=== PATIENT | female | born 1940 | race Caucasian/White ===

== ENCOUNTER 2017-12-09 00:29 | Emergency (ER) | payer MEDICARE, OTHER ==
[~2017-12-09] VITALS: Ht 152.4 cm; Wt 65.8 kg
[2017-12-09] MEDS ORDERED: LANTUS100 UNITS/ SUB-Q (00:58)
[2017-12-09] MEDS ORDERED: METOPROLOL SUCC25 MG PO (00:59)
[2017-12-09] MEDS ORDERED: ACTOS30 MG PO (00:59)
--- OUTSIDE RECORDS SUMMARY | 2017-12-09 01:21 | XMS | Clinical Summary ---
Demographics + + + | Address | [address] | | | [place] [address] | + + + | Home Phone | | + + + | Preferred Language | Unknown | + + + | Marital Status | Single | + + + | Voodoo Affiliation | NON | + + + | Race | White | + + + | Ethnic Group | Not or | + + + Author + + + | Author | [facility] | + + + | Organization | [facility] | + + + | Address | Unknown | + + + | Phone | Unavailable | + + + Care Team Providers + +------+ + | Care Piano Mechanic Apprentice Name | Role | Phone | + +------+ + PP | Unavailable | + +------+ + Source Comments [facility] [place] [facility] and [facility] InPatient.[facility] Allergies Not on File Current Medications Not on file Active Problems Not on file Social History + +-------+ +--------+------+ | Tobacco Use | Types | Packs/Day | Years | Date | | | | | Used | | + +-------+ +--------+------+ | Never Assessed | | | | | + +-------+ +--------+------+ + + + | Sex Assigned at | Date Recorded | | | | + + + | Not on file | | + + + Plan of Treatment + + + + + | Health Maintenance | Due Date | Last Done | Comments | + + + + + | INFLUENZA VACCINE | | | | | (FLU SHOT) | 7 | | | + + + + + Results Not on filefrom Last 3 Months"
--- OUTSIDE RECORDS SUMMARY | 2017-12-09 01:22 | XMS | Clinical Summary ---
Demographics + + + | Address | [address] | | | [place] [address] | + + + | Home Phone | | + + + | Preferred Language | Unknown | + + + | Marital Status | Single | + + + | Restoration Affiliation | NON | + + + | Race | White | + + + | Ethnic Group | Not or | + + + Author + + + | Author | [facility] | + + + | Organization | [facility] | + + + | Address | Unknown | + + + | Phone | Unavailable | + + + Care Team Providers + +------+ + | Care Booster Assembler Name | Role | Phone | + +------+ + PP | Unavailable | + +------+ + Source Comments [facility] and [facility] InPatient.[facility] Allergies Not on File Current Medications Not [...]
== END 2017-12-09 02:10 | disposition home or self-care (01) ==
LOC: ED 00:29
DX: E09.649 Drug or chemical induced diabetes mellitus with hypoglycemia without coma (principal); T38.3X5A Adverse effect of insulin and oral hypoglycemic [antidiabetic] drugs, initial encounter; I10 Essential (primary) hypertension; K21.9 Gastro-esophageal reflux disease without esophagitis; E03.9 Hypothyroidism, unspecified; Z90.49 Acquired absence of other specified parts of digestive tract; Z88.8 Allergy status to other drugs, medicaments and biological substances; Z79.899 Other long term (current) drug therapy; Z79.4 Long term (current) use of insulin
CPT/HCPCS: 99283

== ENCOUNTER 2019-04-03 10:03 | Emergency (ER) | payer MEDICARE, OTHER ==
[~2019-04-03] VITALS: Ht 149.9 cm; Wt 57.6 kg
--- OUTSIDE RECORDS SUMMARY | ~2019-04-03 | XMS | Clinical Summary ---
Demographics + + + | Address | [address] | | | [place] [address] | + + + | Home Phone | | + + + | Preferred Language | Unknown | + + + | Marital Status | | + + + | Yarsanism Affiliation | Unknown | + + + | Race | Unknown | + + + | Ethnic Group | Unknown | + + + Author + + + | Author | [facility] | | | and [place] | + + + | Organization | [facility] | | | and [place] | + + + | Address | Unknown | + + + | Phone | Unavailable | + + + Support + + +---------+ + | Name | Relationship | Address | Phone | + + +---------+ + | SAUL WADSWORTH | ECON | Unknown | | + + +---------+ + Care Team Providers + +------+ + | Care Chucking Lathe Operator Name | Role | Phone | + +------+ + PP | Unavailable | + +------+ + Allergies Not on File Medications Not on file Active Problems Not [...] on file | | + + + + + + + | Job Start Date | Occupation | Industry | + + + + | Not on file | Not on file | Not on file | + + + + + + + + | Travel History | Travel Start | Travel End | + + + + + + | No recent travel history available. | + + Plan of Treatment + + + + + | Health Maintenance | Due Date | Last Done | Comments | + + + + + | Vaccine: | | | | | Dtap/Tdap/Td (1 - | 7 | | | | Tdap) | | | | + + + + + | Vaccine: Zoster (1 | | | | | of 2) | 8 | | | + + + + + | Vaccine: | | | | | Pneumococcal 65+ | 3 | | | | Low/Medium Risk (1 | | | | | of 2 - PCV13) | | | | + + + + + | Vaccine: Influenza | | | | | (Season Ended) | 9 | | | + + + + + Results Not on filefrom Last 3 Months"
--- OUTSIDE RECORDS SUMMARY | ~2019-04-03 | XMS | Encounter Summary ---
Demographics + + + | Address | [address] | | | [place] [address] | + + + | Home Phone | | + + + | Preferred Language | Unknown | + + + | Marital Status | Single | + + + | Temple Affiliation | NON | + + + | Race | White | + + + | Ethnic Group | Not or | + + + Author + + + | Author | [facility] | + + + | Organization | [facility] | + + + | Address | Unknown | + + + | Phone | Unavailable | + + + Care Team Providers + +------+ + | Care Ceramic Painter Name | Role | Phone | + +------+ + PCP | Unavailable | + +------+ + Encounter Details +--------+ + + + + | Date | Type | Department | Care Team | Description | +--------+ + + + + | 09/24/ | Hospital | Dermatopathology | | | | 2015 | Encounter | [address] | | | | | | Mail Code: CH16D | | | | | | [facility] | | | | | | and Healing, 5th | | | | | | floor [place], [place] | | | | | | [address] | | | | | | [phone] | | | +--------+ + + + + Social History + +-------+ +--------+------+ | Tobacco [...] recent travel history available. | + + documented as of this encounter Plan of Treatment Not on filedocumented as of this encounter Procedures + +--------+ + + + | Procedure Name | Priori | Date/Time | Associated Diagnosis | Comments | | | ty | | | | + +--------+ + + + | DERM PATHOLOGY | Routin | 09/24/2015 | | Results for this | | | e | | | procedure are in the | | | | | | results section. | + +--------+ + + + documented in this encounter Results DERM PATHOLOGY (09/24/2015) + + + + + + | Component | Value | Ref Range | Performed | Pathologist | | | | | At | Signature | + + + + + + | DERMATOPATH | SOURCE OF SPECIMEN:A Rt. | | [facility] | | | OLOGY(WET | lower leg, shave | | DERMATOPATH | | | MNT) | biopsy CLINICAL | | OLOGY | | | | DESCRIPTION:Erythematous | | | | | | hyperpigmented | | | | | | hyperkeratotic plaque | | | | | | and irregular pigment; | | | | | | ?irritated SK, SCC in | | | | | | situ; r/o | | | | | | melanoma. GROSS | | | | | | DESCRIPTION:Received in | | | | | | formalin is a specimen | | | | | | labeled Carmelo Blake:A: | | | | | | Specimen is labeled "Rt | | | | | | lower leg" and consists | | | | | | of an irregular shave | | | | | | ofscaly papular patchy | | | | | | scp-cizcf-nmsuq skin, | | | | | | [id number]. The surgical | | | | | | marginis inked black; | | | | | | the tissue is serially | | | | | | sectioned, and entirely | | | | | | submitted incassette | | | | | | A1. MICROSCOPIC | | | | | | DESCRIPTION:There is | | | | | | epidermal hyperplasia | | | | | | with horn pseudocysts, | | | | | | interweaving of therete, | | | | | | and nuclei of uniform | | | | | | size and shape. A | | | | | | lymphocytic infiltrate | | | | | | ispresent within the | | | | | | dermis and the | | | | | | epithelium. | | | | | | DIAGNOSIS:SEBORRHEIC | | | | | | KERATOSIS, | | | | | | INFLAMED. | | | | | | KPW:mm09/26/15 My | | | | | | electronic signature | | | | | | indicates that I have | | | | | | personally reviewed | | | | | | alldiagnostic slides, | | | | | | the gross and/or | | | | | | microscopic portion of | | | | | | thisreport and | | | | | | formulated the final | | | | | | diagnosis. | | | | | | Rendering | | | | | | Diagnostician: Melquiades | | | | | | White | | | | | | M.D.PathologistElectroni | | | | | | simeon Signed | | | | | | 09/26/2015 5:45PM | | | | + + + + + + + + | Specimen | + + | | + + + + + | Narrative | Performed At | + + + | | | + + + + + + + + | Performing | Address | City/State/Zipcode | Phone Number | | Organization | | | | + + + + + | [facility] | [address] | [place] [address] | | | DERMATOPATHOLOGY | [address] | | | + + + + + documented in this encounter Visit Diagnoses Not on filedocumented in this encounter
--- OUTSIDE RECORDS SUMMARY | ~2019-04-03 | XMS | Clinical Summary ---
Demographics + + + | Address | [address] | | | [place] [address] | + + + | Home Phone | | + + + | Preferred Language | Unknown | + + + | Marital Status | | + + + | Orthodox Affiliation | Unknown | + + + | Race | Unknown | + + + | Ethnic Group | Unknown | + + + Author + + + | Author | [facility] | | | and [place] | + + + | Organization | [facility] | [...] Team Providers + +------+ + | Care Environmental Services Project Manager Name | Role | Phone | + [...]
--- OUTSIDE RECORDS SUMMARY | ~2019-04-03 | XMS | Encounter Summary ---
Demographics + + + | Address | [address] | | | [place] [address] | + + + | Home Phone | | + + + | Preferred Language | Unknown | + + + | Marital Status | Single | + + + | Taoist Affiliation | NON | + + + | Race | White | + + + | Ethnic Group | Not or | + + + Author + + + | Author | [facility] | + + + | Organization | [facility] | + + + | Address | Unknown | + + + | Phone | Unavailable | + + + Care Team Providers + +------+ + | Care Facility Maintenance Worker Name | Role | Phone | + [...] [facility] | | | | | | [facility] | | | | | | and Healing, 5th | | | | | | floor [place], [place] | | | | | | [address] | | | | | | [phone] | | | +--------+ + + + [...] patchy | | | | | | iav-saayi-belye skin, | | | | | | [id number]. The surgical | | | | | [...] [facility] | [address], [address] | [place] [address] | | | DERMATOPATHOLOGY | [address] | | | + + + + + documented in this encounter Visit Diagnoses Not on filedocumented in this encounter
--- OUTSIDE RECORDS SUMMARY | ~2019-04-03 | XMS | Clinical Summary ---
Demographics + + + | Address | [address] | | | [place] [address] | + + + | Home Phone | | + + + | Preferred Language | Unknown | + + + | Marital Status | Single | + + + | Zoroastrianism Affiliation | NON | + + + | Race | White | + + + | Ethnic Group | Not or | + + + Author + + + | Author | [facility] | + + + | Organization | [facility] | + + + | Address | Unknown | + + + | Phone | Unavailable | + + + Care Team Providers + +------+ + | Care Anesthesia Resident Name | Role | Phone | + +------+ + PP | Unavailable | + +------+ + Source Comments [facility] Allergies Not on File Medications Not on [...] | + + + + + | Pneumococcal (Adult) | | | | | (1 of 2 - PCV13) | 3 | | | + + + + + | Influenza (Flu) | | | | | vaccination (Season | 9 | | | | Ended) | | | | + + + + + Results Not on filefrom Last 3 Months Insurance + +--------+ +--------+ + +--------+ | Payer | Benefi | Subscriber | Effect | Phone | Address | Type | | | t Plan | ID | jessica | | | | | | / | | Dates | | | | | | Group | | | | | | + +--------+ +--------+ + +--------+ | MEDICARE | MEDICA | xxxxxxxxxx | | [phone] | [address] | [address] | | | RE A & | | [phone] | re | | | B | | esent | | [place], [place] | | | | | | | | [address] | | + +--------+ +--------+ + +--------+ | MODA | MODA | xxxxxxxxx | Effect | [phone] | [address] | PPO | | | CON[place]EX | | jessica | [phone] | [phone] | | | | [place] | | for | | [place], | | | | | | all | | [place] [address] | | | | | | dates | | | | + +--------+ +--------+ + +--------+ + +--------+ +--------+ + + | Guarantor Name | Accoun | Relation to | Date | Phone | Billing Address | | | t Type | Patient | of | | | | | | | | | | + +--------+ +--------+ + + | Carmelo WADSWORTH | Person | Other | [birth year] | [address] | | | [place] | | 1940 | [phone] | [place] [address] | | | manju | | | 9 (Home) | | + +--------+ +--------+ + +"
--- OUTSIDE RECORDS SUMMARY | ~2019-04-03 | XMS | Encounter Summary ---
Demographics + + + | Address | [address] | | | [place] [address] | + + + | Home Phone | | + + + | Preferred Language | Unknown | + + + | Marital Status | Single | + + + | Sikhism Affiliation | NON | + + + | Race | White | + + + | Ethnic Group | Not or | + + + Author + + + | Author | [facility] | + + + | Organization | [facility] | + + + | Address | Unknown | + + + | Phone | Unavailable | + + + Care Team Providers + +------+ + | Care Plow Mechanic Name | Role | Phone | + +------+ + PCP | Unavailable | + +------+ + Encounter Details +--------+ + + + + | Date | Type | Department | Care Team | Description | +--------+ + + + + | 10/02/ | Documentati | NON-[facility] | Unknown . | | | 2015 | on | Department | | | +--------+ + + + [...] Not on filedocumented as of this encounter Visit Diagnoses Not on filedocumented in this encounter"
--- OUTSIDE RECORDS SUMMARY | ~2019-04-03 | XMS | Encounter Summary ---
Demographics + + + | Address | [address] | | | [place] [address] | + + + | Home Phone | | + + + | Preferred Language | Unknown | + + + | Marital Status | Single | + + + | Advent Affiliation | NON | + + + | Race | White | + + + | Ethnic Group | Not or | + + + Author + + + | Author | [facility] | + + + | Organization | [facility] | + + + | Address | Unknown | + + + | Phone | Unavailable | + + + Care Team Providers + +------+ + | Care Clinical Research Scientist Name | Role | Phone | + [...]
--- OUTSIDE RECORDS SUMMARY | ~2019-04-03 | XMS | Clinical Summary ---
Demographics + + + | Address | [address] | | | [place] [address] | + + + | Home Phone | | + + + | Preferred Language | Unknown | + + + | Marital Status | Single | + + + | Mandaeism Affiliation | NON | + + + | Race | White | + + + | Ethnic Group | Not or | + + + Author + + + | Author | [facility] | + + + | Organization | [facility] | + + + | Address | Unknown | + + + | Phone | Unavailable | + + + Care Team Providers + +------+ + | Care Trucksmith Name | Role | Phone | + +------+ + PP | Unavailable | + +------+ + Source Comments [facility] InPatient.[facility] Allergies Not on File Medications Not on [...] | | | | | | | [address] | | + +--------+ +--------+ + +--------+ | MODA | MODA | xxxxxxxxx | Effect | [phone] | [address] | PPO | | | [place] | | jessica | [phone] | [phone] | | | | [place] | | for | | [place], | | | | | | all | | [place] [address] | | | | | | dates [...] | 1940 | [phone] | [place] [address] | | | manju | | | 9 (Home) | | + +--------+ +--------+ + +"
[~2019-04-03 10:03] MED LIST: ACTOS30 MG PO; ASPIRIN81 MG PO; LANTUS100 UNITS/ SUB-Q; LEVOTHYROXINE50 MCG PO; LIPITOR10 MG PO; METOPROLOL SUCC25 MG PO
[2019-04-03] MEDS ORDERED: PANTOPRAZOLE SO40 MG PO (10:42)
[2019-04-03] MEDS ORDERED: NORCO 5-325 TA1 EACH PO (14:10)
[2019-04-03] MEDS ORDERED: COLACE100 MG PO (14:10)
== END 2019-04-03 14:22 | disposition home or self-care (01) ==
LOC: ED 10:03
DX: R19.00 Intra-abdominal and pelvic swelling, mass and lump, unspecified site (principal); I10 Essential (primary) hypertension; K21.9 Gastro-esophageal reflux disease without esophagitis; E03.9 Hypothyroidism, unspecified; E11.9 Type 2 diabetes mellitus without complications; Z91.038 Other insect allergy status; Z88.8 Allergy status to other drugs, medicaments and biological substances; Z79.82 Long term (current) use of aspirin; Z79.4 Long term (current) use of insulin
CPT/HCPCS: 74177; 80053; 81001; 85025; 86304; 99284-25; J7040

== ENCOUNTER 2019-07-14 07:05 | Inpatient (IN) | payer MEDICARE, OTHER ==
[~2019-07-14] VITALS: Ht 149.9 cm; Wt 50.8 kg
--- NOTE | ~2019-07-14 | DS ---
[facility] [address] [place] [address] Draft ADMISSION DATE: 07/14/2019 DISCHARGE DATE: 07/18/2019 REASON FOR ADMISSION: This 78-year-old white woman is a patient of Dr. Bryant Garcia as well as Dr. Fernandez at [facility]. She was discovered in March 2019 to have a large pelvic mass with multiple loculations and elevated CA-125 greater than 1500, all of this consistent with ovarian carcinoma. The patient has gone through neoadjuvant chemotherapy under the direction of Dr. Garcia, which has made no impact whatsoever on the lesion based on CT findings. She was referred to al for a Port-A-Cath as well as for possible intraperitoneal biopsy. She was offered not only the Port-A-Cath and also tumor debulking to include hysterectomy, omentectomy, and other methods for tumor debulking. On the presumption, this does represent ovarian carcinoma as yet to be optimally resected. She was admitted for that purpose at this time. She is noted on recent CT scan to have mild hydronephrosis almost certainly related to the bulky pelvic mass. PERTINENT PHYSICAL EXAMINATION: GENERAL: A short and small white woman who is alert and oriented, bald, based on her chemotherapy she has undergone. The recently placed left subclavian Port-A-Cath is highly functional. CHEST: Clear. HEART: Regular. ABDOMEN: Shows no sign of ascites. There is a palpable mass extending to the umbilicus related to the pelvic tumor. EXTREMITIES: Show no clubbing, cyanosis, or edema. HOSPITAL COURSE: She underwent a preoperative bowel prep at home and on July 14, 2019, underwent laparotomy with excision of a giant left ovarian mass, which was in continuity with the uterus. Hysterectomy with bilateral salpingo-oophorectomy was accomplished despite the complexity of the mass and its attachment to the bladder anteriorly, the mesocolon posteriorly, and the pelvic wall laterally. Total omentectomy was undertaken as well as tumor debulking of peritoneal nodules, lesser sac nodules, and abdominal wall nodules. She was taken to the intensive care unit postoperatively given her advanced age. A drain was placed in the pelvis. PATIENT NAME: Carmelo WADSWORTH DISCHARGE SUMMARY DATE OF : 36 REPORT #: [id number] PHYSICIAN: SAUL THOMPSON MD PCP: Robin FERNANDEZ DO REPORT IS CONFIDENTIAL AND NOT TO BE RELEASED WITHOUT AUTHORIZATION [facility] [address] [place], [place] [address] Draft She was maintained in opiate free management as possible. A TAP block was used preoperatively to diminish intraoperative anesthetic requirements and was successful. She was given liquids the night of operation and advanced steadily ultimately to a mechanical soft diet with and regular ADA diet, which she tolerated well. A drain was placed in the pelvis was removed prior to discharge showing only minimal amounts of serous fluid. Her pathology report is pending. She is doing impressively well. It is anticipated that she will be seeing Dr. Garcia this week for further consideration of adjuvant chemotherapy. By then, the pathology report should be available. MEDICATIONS: Her discharge medications will include: 1. Ibuprofen 600 mg p.o. q.6 hours p.r.n. pain #90, refills 3. 2. Tylenol Extra Strength 500 mg tablets, two tablets p.o. q.6 hours p.r.n. pain. 3. Famotidine 20 mg p.o. q.12 hours. 4. She will continue with her usual Lantus insulin 15 units subcu daily. 5. Aspirin 81 mg daily. 6. Atorvastatin 10 mg daily. 7. Synthroid 50 mcg p.o. daily. 8. Pantoprazole 40 mg p.o. daily. 9. Lorazepam (Ativan) 1 mg p.o. q.4 hours p.r.n. nausea and restlessness. 10. Senna tablets 1 to 2 p.o. as needed for constipation. 11. Insulin Lantus 2 units subcu q.h.s. 12. She will have [place] available to her as she had previously as well, 5/325 tablet one p.o. q.i.d. as needed for pain. FOLLOWUP PLAN: She will return to see me in approximately 4 weeks or so. She is encouraged to walk on a daily basis to avoid deep venous thrombosis, also to shower and to keep Steri-Strips in place until they curl up on their own. She should lift no more than 20 pounds for the next 4 weeks. DISCHARGE DIAGNOSES: 1. Left giant ovarian mass consistent with ovarian carcinoma status post laparotomy, abdominal hysterectomy, and bilateral salpingo-oophorectomy, tumor debulking, omentectomy, and placement of drain. 2. Hypothyroidism. 3. Insulin-dependent diabetes mellitus. 4. Chronic gastroesophageal reflux. PATIENT NAME: Carmelo WADSWORTH DISCHARGE SUMMARY DATE OF : 36 REPORT #: [id number] PHYSICIAN: SAUL THOMPSON MD PCP: Robin FERNANDEZ DO REPORT IS CONFIDENTIAL AND NOT TO BE RELEASED WITHOUT AUTHORIZATION [facility] [address] [place] [id number] Draft 5. Neoadjuvant chemotherapy without obvious tumor response. 6. History of placement of left subclavian Port-A-Cath device. MD MERLIN Dutta/MODL /[id number] cc: MD Robin Hassan DO Copies: BRYANT GARCIA MD, W DREW DO ~ PATIENT NAME: Carmelo WADSWORTH DISCHARGE SUMMARY DATE OF : 36 REPORT #: [id number] PHYSICIAN: SAUL THOMPSON MD PCP: Robin FERNANDEZ DO REPORT IS CONFIDENTIAL AND NOT TO BE RELEASED WITHOUT AUTHORIZATION
[~2019-07-14 07:05] MED LIST changes: +ADVIL PM CAPLE1 EACH PO; +ATIVAN1 MG PO; +COLACE100 MG PO; +NORCO 5-325 TA1 EACH PO; +ONDANSETRON ODT8 MG PO; +PANTOPRAZOLE SO40 MG PO
--- NOTE | 2019-07-14 13:37 | NUR ---
07/14/19 1337 Gisela Alexander 1324-PATIENT ARRIVED TO PACU ON 6L MASK NONAROUSABLE. ORAL AIRWAY IN PLACE. RR EVEN.RR 24. PILLOW REPOSITIONED BENEATH HEAD. INCISION TO ABDOMEN CDI. YANNA DRAIN TO LEFT ABDOMEN 60 MLS SANGUINOUS DRAINAGE REMOVED. 1326-LISSA QUILT STUFFER GAVE EPHEDRINE IVP FOR BP IN 80'S. NEW ORDER RECEIVED FOR EKG AND CBC DRAW. 1333-RT AT BEDSIDE FOR EKG. NEW ORDER FROM DR. THOMPSON TO DRAW CMP. MEGGAN RN DOING BLOOD DRAW. 1335-PATIENT OPENING EYES TO VERBAL STIMULI RAISING HAND TO MOUTH ON COMMAND. ORAL AIRWAY REMOVED. PATIENT DENIES PAIN. ORIENTED TO PERSON AND PLACE DISORIENTED TO TIME SAYING "1981" PATIENT ON 6L MASK 100% RR EVEN.
--- NOTE | 2019-07-14 14:30 | NUR ---
PT TO ROOM 128 FROM PACU. TWO IV SITES ARE INTACT, NO REDNESS OR SWELLING NOTED, FLUSHES AND FLUIDS INFUSE EASILY. PT IS ABLE TO ANSWER QUESTIONS CLEARLY. VITALS WNL.
--- NOTE | 2019-07-14 14:45 | NUR ---
ICE PACK APPLIED TO PT ABD OVER INCISION SITE.
--- NOTE | 2019-07-14 14:58 | NUR ---
PT GIVEN TORADOL 30 MG IV FOR 6/10 ABD PAIN. PT DENIES SOB AND NAUSEA.
--- NOTE | 2019-07-14 15:20 | EKG ---
[facility] [address] [facility] [place], [place] [address] Signed Normal sinus rhythm Normal ECG When compared with ECG of 13-JUL-2019 11:50, No significant change was found Confirmed by RIC AUGUSTIN DO ([id number]) on 07/14/2019 3:20:15 PM Electronically Signed By: RIC AUGUSTIN DO 07/14/19 1520 PATIENT NAME: Carmelo WADSWORTH Electrocardiogram DATE OF : 36 PHYSICIAN: RIC AUGUSTIN DO REPORT #: [id number] REPORT IS CONFIDENTIAL AND NOT TO BE RELEASED WITHOUT AUTHORIZATION
--- NOTE | 2019-07-14 15:38 | NUR ---
PT REPORTS INCREASING ABD PAIN, 8/10. 1 MG IV MORPHINE GIVEN. PT IS ALERT AND ORIENTED X4, SLIGHTLY DROWSY. PT DENIES NAUSEA AND SOB.
--- NOTE | 2019-07-14 15:40 | NUR ---
PT NOW ON ROOM AIR SHE WAS SATING 100% ON 2L VIA NC.
--- NOTE | 2019-07-14 16:07 | NUR ---
PT IS ON ROOM AIR AT THIS TIME, O2 SATS ARE 96%. PT IS RESTING QUIETLY WITH EYES CLOSED.
[2019-07-14] MEDS ORDERED: RA P-COL RITE1 EACH PO (16:38)
--- NOTE | 2019-07-14 17:20 | NUR ---
PT AWAKE FROM A SHORT NAP, STATES PAIN IS WELL CONTROLED AT THIS TIME. SHE HAS ICE PACK TO ABD. VITALS ARE WNL. PT DENIES NAUSEA AND SOB. ALERT AND ORIENTED X4. MIDLINE INCISION IS INTACT COVERED WITH MEPILEX, AND OPSITE, NO DRAINAGE NOTED, YANNA DRAIN IS IN PLACE.
--- NOTE | 2019-07-14 19:05 | NUR ---
pt able to trena jello for dinner and sips of water, she denies nausea and sob. pt reports pain at 6/10 in her abd, 1 mg iv morphine given. vitals are wnl. pt remains alert and oriented x4.
--- NOTE | 2019-07-14 19:30 | NUR ---
REPORT RECIEVED FROM CCU RN. PT RESTING IN BED AT THIS TIME. MULTIPLE VISITORS IN ROOM AT THIS TIME. PT REPORTS 5/10 PAIN, BUT DENIES NEED FOR PAIN MEDICATION. CALL LIGHT WITHIN REACH. NO FURTHER REQUEST AT THIS TIME.
--- NOTE | 2019-07-14 21:00 | NUR ---
PT REPORTS INCREASE OF PAIN, PRN IV TYLENOL GIVEN.
--- NOTE | 2019-07-14 22:00 | NUR ---
IN ROOM TO CHECK ON PATIENT, RESTING WITH EYES CLOSED, BREATHING EVEN AND UNLABORED.
--- NOTE | 2019-07-14 23:15 | NUR ---
IN TO ASSESS PATIENT AND PAIN MEDICATION ADMINISTRATION. PT REPORTS 6/10 PAIN. DRESSING OVER INCISION REMAINS CLEAN, DRY, AND INTACT. CALL LIGHT WITHIN REACH NO FURTHER NEEDS AT THIS TIME.
--- NOTE | 2019-07-15 06:04 | NUR ---
ASSISTED PT TO SITTING POSTION AT SIDE OF BED. PT ABLE TO MOVE TOWARDS THE HEAD OF BED AND LAY BACK DOWN WITHOUT ASSISTANCE. PAIN IS NOW AT A 7/10 AFTER MOVEMENT. MEDICATION GIVEN AT THIS TIME. CALL LIGHT WITHIN REACH, NO FURTHER NEEDS AT THIS TIME.
--- NOTE | 2019-07-15 08:05 | NUR ---
PT IS AWAKE, ALERT AND ORIENTED X4. DENIES NEED FOR PAIN MEDICATION AT THIS TIME. VITALS ARE WNL. INCISION SITE IS INTACT, DRESSING INTACT, YANNA DRAIN TO LEFT LOW QUAD IS IN PLACE.
--- NOTE | 2019-07-15 09:02 | NUR ---
PT GIVEN ICE PACK FOR ABD PER HER REQUEST. PT IS ALERT AND ORIENTED X4, VITALS ARE WNL. PT IV SITES ARE INTACT, NO SWELLING OR REDNESS NOTED, FLUIDS AND FLUSHES INFUSE EASILY. PT INCISION SITE IS INTACT, SCANT SHADOWING NOTED AT TOP OF DRESSING, YANNA SITE IS ALSO INTACT. YANNA DRAIN STILL PRODUCING MODERATE AMOUNT OF SEROSANG DRAINAGE. PT ABLE TO SERAFIN PO SIPS OF WATER, DENIES NAUSEA.
[2019-07-15] MEDS ORDERED: LANTUS100 UNITS/ SUB-Q (10:06)
[2019-07-15] MEDS ORDERED: NORCO 5-325 TA1 EACH PO (10:08)
--- NOTE | 2019-07-15 10:08 | NUR ---
MED REC COMPLETE
--- NOTE | 2019-07-15 10:49 | NUR ---
PT UP SITTING AT BEDSIDE, STAND AND PIVOT TO CHAIR. PT IS ONE PERSON ASSIST. PT REPORTS SOME PAIN WITH MOVEMENT, BUT STATES WHEN SITTING IN CHAIR IT IS WELL CONTROLLED. HR REMAINS IN 80'S WITH ACTIVITY. SPOUSE IS AT THE BEDSIDE.
--- NOTE | 2019-07-15 13:30 | NUR ---
ASSISTED PT BACK TO BED FROM CHAIR, PT ABLE TO SERAFIN ACTIVITY WELL. PT DENIES NEED FOR PAIN MEDICATION AT THIS TIME. PT IS ALERT AND ORIENTED X4. ICE PACK TO ABD PER PT REQUEST. VITALS ARE WNL AT THIS TIME.
--- NOTE | 2019-07-15 13:50 | NUR ---
FULL REPORT GIVEN TO EVER FREIRE. PT TRANSFERED FROM CCU TO MED/SURG 113, ALL PERSONAL BELONGINGS WENT WITH PT.
--- NOTE | 2019-07-15 13:52 | NUR ---
REPORT RECEIVED FROM TANI RUVALCABA. PT TO MS ROOM 113 VIA HOSPITAL BED. PT ALERT AND ORIENTED, ASSESSMENT COMPLETED. IV FLUIDS INFUSING AT PRESCRIBED RATE. CALL LIGHT AND H2O IN REACH. PT APPEARS TO BE IN GOOD SPIRITS. PT REPORTS 6/10 ABD PAIN TO SURGICAL SITE. MEPILEX/OPSITE DSG REMAINS INTACT WITH SOME SHADOWING NOTED TO DSG. CALL LIGHT AND H2O IN REACH. PT REPORTS PAIN OF 6/1O, DENIES SOB OR ANY OTHER SYMPTOMS.
--- NOTE | 2019-07-15 15:09 | NUR ---
STAYED JUST A MOMENT WITH PT, SHE HAS A NUMBER OF VISITORS. SHE SAID PAIN IS WELL UNDER CONTROL. EXTENDED A BLESSING DR THOMPSON ENTERED RM. WILL FOLLOW NEEDED
--- NOTE | 2019-07-15 15:30 | NUR ---
CALL LIGHT ANSWERED. PATIENT RESTING IN BED. PATIENT'S GOWN IS WET. GOWN CHANGED. WARM BLANKET PROVIDED. PATIENT ASKS FOR PAIN MEDICINE. RN NOTIFIED. CALL LIGHT WITHIN REACH. NO OTHER NEEDS AT THIS TIME.
--- NOTE | 2019-07-15 15:49 | NUR ---
PT REPORTS INCREASED ABD PAIN OF 06/01. PT REQUESTED AND RECEIVED PRN PO TYLENOL. PT STATES "I FEEL LIKE I COULD EAT SOMETHING MORE THAN WHAT I HAVE BEEN". PT DENIES NAUSEA. WILL DISCUSS ADVANCING PT'S DIET WITH MD. CALL LIGHT AND H2O IN REACH. PT DENIES FURTHER NEEDS/CONCERNS AND DECLINES CLEAR LIQUID SNACK AT THIS TIME.
--- NOTE | 2019-07-15 16:35 | NUR ---
PT RESTING SUPINE IN BED, ALERT AND ORIENTED. PT STATES PAIN IS TOLERABLE AND THAT SHES COMFORTABLE AT THIS TIME. FRESH ICE WATER AND CALL LIGHT IN REACH. PT DENIES NEEDS/CONCERNS.
--- NOTE | 2019-07-15 17:19 | OR ---
[facility] [address], [place] [address] Signed DATE OF OPERATION: 07/14/2019 SURGEON: Saul Thompson MD PREOPERATIVE DIAGNOSES: 1. 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 2. 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 POSTOPERATIVE DIAGNOSES: 1. 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 2. 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 3. 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 PROCEDURES PERFORMED: 1. Laparotomy with excision of giant left ovarian mass in continuity with uterus and right adnexal structures (hysterectomy, bilateral salpingo-oophorectomy, prolonged, complicated, difficult). 2. Omentectomy (total). 3. Tumor debulking including excision of peritoneal nodules, lesser sac nodules, and abdominal wall nodules. SERVICES CLERK NURSE: Jennifer Arroyo RN. ANESTHESIA: General endotracheal; Ashkan Dilcia, SLICER MACHINE OPERATOR; and preoperative TAP block. DRAIN: 7 mm Olegario. INDICATION: This 78-year-old white woman is known to me from the past. She is a patient of Dr. Fernandez in [place] as well as Dr. Bryant Garcia. She was discovered in March of 2019 to have a large pelvic mass with multiple loculations and so forth consistent with ovarian carcinoma. Her CA-125 is said to be greater than 500. Dr. Garcia evaluated her in conferred with a communications assistant oncologist in [place], [place], who recommended neoadjuvant chemotherapy to shrink the tumor for anticipating definitive resection. The patient was noted to have nodularity of the omentum as well as the right hemidiaphragm, Electronically Signed By: SAUL THOMPSON MD 07/15/19 1719 PATIENT NAME: Carmelo WADSWORTH OPERATIVE REPORT DATE OF : 36 REPORT #: [id number] PHYSICIAN: SAUL THOMPSON MD PCP: Robin FERNANDEZ DO REPORT IS CONFIDENTIAL AND NOT TO BE RELEASED WITHOUT AUTHORIZATION [facility] [address], [place] [address] Signed but no generalized ascites. She had at least 7 cycles of chemotherapy since March of this year, and re-evaluation in early June showed no evidence of reduction of the tumor in the slightest. She was referred to me for biopsy of one of the intraperitoneal nodules to affirm or refute ovarian cancer as the underlying malignancy as well as place a Port-A-Cath. She did undergo port placement by me several days ago without problem. I have recommended open tumor debulking to include excision of the mass, hysterectomy, tumor debulking, omentectomy, and other indicated procedures. Her most recent CT scan showed mild hydronephrosis. She has had no vaginal bleeding or anything to suggest sarcoma of the uterus. The patient and her family understand the risks of bleeding, infection, ureteral injury, failure to afford complete resection of metastatic disease and of course in anticipated plan for chemotherapy to be undertaken once tumor debulking is complete. Understanding this, they wished to proceed. Additionally, hazard to other organs including the colon, ureters and elsewhere was reviewed. She does seem to have bladder compression related to the bulky tumor and has noted mild hydronephrosis. FINDINGS: The mass extended up to the umbilicus essentially allowing the lesion to be called a "20 week" mass. The right adnexa were essentially normal. The neoplasm was certainly an ovarian malignancy and related to the left ovary. Complete excision of the mass was undertaken in continuity with the uterus itself. 2 cm of lower uterine segment (cervix) remain in place in deference to the distorted anatomy of the low pelvis and in avoiding a ureteral injury. There were multiple white 1 cm nodules interspersed in the omentum itself. This included the lesser sac. Complete omentectomy was undertaken as well as lesser sac bulking of tumor. There was gross disease in the right hemidiaphragm. The liver itself was free of abnormality. A gallbladder was normal and palpably normal without sign of stones. There was no sign of imminent obstruction of the small bowel or the colon. Of special note, the sigmoid colon was densely adherent to the mass, at least the medial colon was, and resection of sigmoid mesentery was undertaken, but without compromise to the colon itself. The mesenteric defect was reapproximated so as to avoid hernia. The position of the ureters was ascertained and there was no ureteral injury so far as could be told. The bladder itself had a dense plaque like persistence of neoplasm in the posterior aspect. There was no obvious retroperitoneal adenopathy over the iliac vessels or elsewhere. Given the extent of disease already and that which remains in situ, extensive lymphadenectomy was not undertaken or recommended. Electronically Signed By: SAUL THOMPSON MD 07/15/19 1233 PATIENT NAME: Carmelo WADSWORTH OPERATIVE REPORT DATE OF : 36 REPORT #: [id number] PHYSICIAN: SAUL THOMPSON MD PCP: Robin FERNANDEZ DO REPORT IS CONFIDENTIAL AND NOT TO BE RELEASED WITHOUT AUTHORIZATION [address] [address] Signed DESCRIPTION OF PROCEDURE: The patient was brought to the operating room, given a general endotracheal anesthetic. Full bowel prep had been undertaken as well as oral antibiotics. Bimanual pelvic examination was undertaken showing normal palpable cervix and the mass was mobile and nonfixed to pelvic structures so far as could be told. A Fuentes catheter was placed. Vaginal prep was undertaken as was abdominal preparation with a DuraPrep solution. Upon relaxation, the ballotable mass could be ascertained to attain the level of the umbilicus. A previous low midline incision from complex appendectomy performed many years ago was used. Incision extended above the umbilicus and through the lower half of the abdomen. The abdomen was entered and there was no sign of gross ascites, but there were adherent nodules to the undersurface of the abdominal wall in continuity with the bulky ovarian neoplasm. Those areas were excised and left in situ with the neoplasm itself. The incision was extended inferiorly allowing for intraabdominal inspection. There appeared to be gross disease beneath the right hemidiaphragm. The liver itself was spared as was the gallbladder. The colon itself was normal as regards to the right colon, transverse, however, the omentum had multiple metastatic nodules within it. The bulky neoplasm was densely adherent to what appeared to be the sigmoid or at least the mesosigmoid. Adnexal structures on the right side were relatively normal in appearance. Quite obviously the neoplasm arose from the left adnexal side and the ovarian neoplasm was essentially fused with the left side of the normal for age sized uterus. A Bookwalter retractors used for exposure. Small bowel had several areas of plaque-like density, most of them relatively high and somewhat in precarious position for excision in relation to the superior mesenteric artery and vein. The small bowel was packed to the right side of the abdomen using Bookwalter retractor for better exposure. The ovarian neoplasm was freed from the colon, which was essentially densely adherent to it, but not penetrating into it. This was done by combination of electrocautery and blunt dissection. Dissection was carried posteriorly behind the ovarian mass, ultimately identifying well the pelvis which was obscured initially by the bulky ovarian neoplasm. With meticulous care, the colon and its attendant mesentery were freed from the ovarian mass completely. Clips were applied as necessary for hemostasis and application of tonsil clamps and 2-0 silk ties also undertaken. Anteriorly, the uterus and neoplasm were essentially fused to the posterior wall of the bladder. This did not appear to be direct penetration, but rather desmoplastic response related to tumor. This area was bluntly as much as possible. Electronically Signed By: SAUL THOMPSON MD 07/15/19 1719 PATIENT NAME: Carmelo WADSWORTH OPERATIVE REPORT DATE OF : 36 REPORT #: [id number] PHYSICIAN: SAUL THOMPSON MD PCP: oRbin FERNANDEZ DO REPORT IS CONFIDENTIAL AND NOT TO BE RELEASED WITHOUT AUTHORIZATION [facility] [address] [place] [id number] Signed The extent of the bulky tumor was impressive and extended beyond the sacral promontory into the pelvis. It was however reasonably mobile largely except at the left adnexal area. In the left pelvis, the infundibulopelvic ligament was identified, secured doubly with tonsil clamps, divided, and secured with 0 silk ties. Similarly, a window was created for the round ligament and it was similarly divided and secured. The left uterine broad ligament was essentially fused to the pelvic sidewall and with meticulous care freed, mindful of the anatomic position of the ureters. In the left ureter. Once this area was freed more fully and freed posteriorly almost entirely, the colon could be from the neoplasm and plans made for hysterectomy in continuity with a large left ovarian cystic mass. Of note, no rupture of the mass occurred throughout the entire operation. On the right side, the round ligament was easily identified, doubly secured with tonsil clamps, and doubly secured with 0 silk ties. Similarly, the infundibulopelvic ligament was freed as was the anterior and posterior aspects of the broad ligament. Care was taken to avoid application of clamps or ties in the area corresponding to the right ureter. Once the right adnexal portion was freed entirely, plans were made for more formal hysterectomy. Serial application of Levi clamps along the right uterine lower segment was undertaken securing the pedicles with 0 Vicryl ties. The bladder had been freed anteriorly, but it was clear that a supracervical hysterectomy would be more appropriate considering the distorted anatomy in the low pelvis particularly on the left side. Ultimately, the lower portion of the cervical neck was divided with electrocautery sparing approximately 1 to 2 cm at most of the cervix proper. This allowed for complete removal of the bulky mass, which was reminiscent of a volleyball size with the uterus in continuity with it as well as the right adnexal structures. Photographs were taken throughout. Examination of the pelvic floor thus showed plaque-like tumor residual areas in the region of the bladder and the sigmoid colon. The mesenteric defect corresponding to the sigmoid colon was noted, but there was good viability of the remaining colon, likely related to the marginal artery of Wong. The pelvis was then packed off. Attention was turned towards debulking of tumor elsewhere. Examination of the right and left iliac artery showed no sign of specific perivascular adenopathy. Given the extent of tumor burden elsewhere, the benefit of retroperitoneal lymphadenectomy in a formal way was considered unlikely. Attention was turned toward omentectomy. The omentum was freed from the transverse colon along its length and ultimately the greater curvature of the stomach using a combination of electrocautery, application of clips, and silk ties. The omentum was quite lengthy extending high in the stomach, but was excised almost completely and thoroughly. Multiple metastatic nodules within the omentum were quite obvious. Sparing of the transverse mesocolon and the greater curvature vasculature of the stomach was accomplished without hazard. Electronically Signed By: SAUL THOMPSON MD 07/15/19 1719 PATIENT NAME: Carmelo WADSWORTH OPERATIVE REPORT DATE OF : 36 REPORT #: [id number] PHYSICIAN: SAUL THOMPSON MD PCP: Robin FERNANDEZ DO REPORT IS CONFIDENTIAL AND NOT TO BE RELEASED WITHOUT AUTHORIZATION [facility] [address], [place] [address] Signed The lesser sac had some metastatic disease in it as well. Those areas were involved, were excised. Clips were applied across the lesser curve of the stomach in the small way to provide security, but there was certainly no compromise of vascularity of the stomach. Various tumor nodules throughout the peritoneal cavity were excised, some of them on the mesentery, other peritoneal surfaces, and others in the peritoneal cavity of the abdominal wall. As much tumor debulking as reasonable was undertaken. Examination of the bowel from the ligament of Treitz to the terminal ileum showed a dense plaque-like flat segment of neoplasm with neovascularity directly in line with the midportion of the superior mesenteric artery and vein. Consideration was made for debulking this however high hazard to that very major vascular pedicle was noted and further efforts at bulking that portion were abandoned. Irrigation was undertaken with warm saline showing no sign of bleeding. Reinspection of the pelvis showed the transected distal neck of the uterus to not be draining anything. However, it was oversewn nevertheless with interrupted 0 Vicryl suture. There appeared to be no likely injury to left or right ureters based on the area of transection of soft tissue. Satisfied that as much abdominal debulking was undertaken as was reasonable, an inspection of the right hemidiaphragm was undertaken. There was dense plaque like neoplasm. The right hemidiaphragm and a life assurance representative 1 cm chunk of that neoplasm was excised and passed for pathology as well. Reinspection of the sigmoid colon was undertaken and it appeared to be quite viable and therefore segmental resection of it was deemed unnecessary. The mesentery defect was reapproximated with running 2-0 Vicryl suture so as to avoid transmesenteric herniation of the remaining small bowel. Photographs were taken throughout the procedure as previously noted. Through the left lower quadrant, a 7 mm flat Olegario drain was placed into the pelvis. Reinspection of the splenic flexure area showed no sign of bleeding or other problem. The drain was secured to the skin with nylon suture and directed to the low pelvis. Plans were then made for closure. The midline fascia was reapproximated with running bidirectional #1 PDS suture. Excision of abdominal wall tumor nodules on the right side in particular and left to some extent was also undertaken so as to minimize chances of incisional metastatic disease. The skin was closed with running subcuticular 3-0 Vicryl. Steri-Strips were applied as was a Mepilex silver sponge dressing and an OpSite. The patient was ultimately extubated and transferred to recovery room in good condition. Of note, a TAP block was placed by the annealing oven operator at the outset of the operation to diminish the intraoperative stimulus and pain. Blood loss was considered 250 mL. There were no known complications. Sponge, needle, and instrument counts reported as correct x3. Electronically Signed By: SAUL THOMPSON MD 07/15/19 9263 PATIENT NAME: Carmelo WADSWORTH OPERATIVE REPORT DATE OF : 36 REPORT #: [id number] PHYSICIAN: SAUL THOMPSON MD PCP: Robin FERNANDEZ DO REPORT IS CONFIDENTIAL AND NOT TO BE RELEASED WITHOUT AUTHORIZATION [address] [place], [place] [address] Signed The operation was prolonged, complicated, difficult, lasting greater than 4-1/2 hours. MD MERLIN Dutta/EDITH /[id number] cc: MD Robin Hassan DO Copies: BRYANT GARCIA MD, W DREW DO ~ Electronically Signed By: SAUL THOMPSON MD 07/15/19 1719 PATIENT NAME: Carmelo WADSWORTH OPERATIVE REPORT DATE OF : 36 REPORT #: [id number] PHYSICIAN: SAUL THOMPSON MD PCP: Robin FERNANDEZ DO REPORT IS CONFIDENTIAL AND NOT TO BE RELEASED WITHOUT AUTHORIZATION
--- NOTE | 2019-07-15 17:23 | NUR ---
PATIENT RESTING IN BED. VISITORS IN ROOM. VITAL SIGNS AND I&O DONE. ORANGE JUICE GIVEN. CALL LIGHT WITHIN REACH. NO OTHER NEEDS AT THIS TIME
--- NOTE | 2019-07-15 17:50 | NUR ---
PATIENT RESTING IN BED. FAMILY BRING SOUP FOR HER. RN SAID THAT THE SOUP MUST BE PUREED. PUREED SOUP GIVEN. CALL LIGHT WITHIN REACH. NO OTHER NEEDS AT THIS TIME
--- NOTE | 2019-07-15 18:09 | NUR ---
PT EATING PUREED SOUP AND DENIES PAIN, NAUSEA, SOB OR OTHER SYMPTOMS. NO NEEDS/CONCERNS VOICED. FAMILY AT BEDSIDE VISITING PT. CALL LIGHT AND H2O IN REACH.
--- NOTE | 2019-07-15 19:00 | NUR ---
RECEIVED REPORT FROM TANI CURTIS. pt SITTING IN BED. AT BEDSIDE. REPORTED PAIN 05/02. GOWN CHANGED. YANNA DRAIN EMPTIED. REQUESTED ICE PACK. WARM BLANKETS PROVIDED. WHITEBOARD UPDATED. CALL LIGHT WITHIN REACH.
--- NOTE | 2019-07-15 19:30 | NUR ---
ice pack given to pt. nothing else needed at this time.
--- NOTE | 2019-07-15 20:00 | NUR ---
ASSESSMENT DONE. pt TENDER AT MIDLINE INCISION. DRESSING HAS SMALL AMOUNT OF DRAINAGE. YANNA DRAIN EMPTIED. MEDICATIONS GIVEN (SEE MAR). pt REPORTING 6/10 PAIN. WILL WAKE UP FOR PAIN MEDICATIONS. AGREEABLE TO PLAN. CALL LIGHT WITHIN REACH. NO FURTHER REQUESTS AT THIS TIME.
--- NOTE | 2019-07-15 20:07 | NUR ---
VITALS AND I&OS DONE AND CHARTED. FRESH ICE WATER GIVEN. PT NEEDS NOTHING MORE AT THIS TIME.
--- NOTE | 2019-07-15 21:45 | NUR ---
PT STATES SHE HAS ABD PAIN AT 7/10 AND WOULD LIKE TYLENOL. ADMINISTERED TYLENOL AND SHE DENIES FURTHER NEEDS AT THIS TIME. CALL LIGHT IS WITHIN REACH.
--- NOTE | 2019-07-15 23:34 | NUR ---
CALL LIGHT ON. pt REPORTING 11/01 PAIN "IT HURTS REALLY BAD" PRN MORPHINE GIVEN (SEE MAR). YANNA DRAIN EMPTIED. CALL LIGHT WITHIN REACH.
--- NOTE | 2019-07-16 | NUR ---
ROUNDED ON pt. PAIN STILL ELEVATED, PRN PAIN MED ADMINISTERED (SEE MAR). EDUCATED ON PAIN MANAGEMENT. CALL LIGHT WITHIN REACH.
--- NOTE | 2019-07-16 00:35 | NUR ---
ROUNDED ON pt. RATED PAIN 5/10. WILL CALL WHEN IT GETS TO A 6/10. WILL CONTINUE TO MONITOR.
--- NOTE | 2019-07-16 01:35 | NUR ---
ROUNDED ON pt. RATED PAIN 4/10. NO PAIN MEDS AT THIS TIME. CALL LIGHT WITHIN REACH.
--- NOTE | 2019-07-16 03:00 | NUR ---
CALL LIGHT ON. pt HAD UNFORMED BOWEL MOVEMENT. BED BATH GIVEN. pt UP TO TOILET REPORTED 2 MORE SMALL BMS AND A SMALL VOID. FONTENOT REMOVED PER ORDER. LINENS CHANGED. PRN PAIN MEDS GIVEN FOR 3/10 PAIN. BACK TO BED. CALL LIGHT WITHIN REACH. FRESH WATER GIVEN.
--- NOTE | 2019-07-16 03:42 | NUR ---
DID COMPLETE BED CHANGE, NEW GOWN AND BED BATH DUE TO INCONTINENCE OF BM. WARM BLANKETS GIVEN. FRESH ICE WATER GIVEN. BEDSIDE TABLE AND CALL LIGHT IN REACH. PT NEEDS NOTHING MORE AT THIS TIME.
--- NOTE | 2019-07-16 06:23 | NUR ---
pt RESTED FOR "ABOUT AN HOUR" PAIN NOT WELL CONTROLLED WITH PRN TYLENOL AND MOTRIN. IV MORPHINE X3. MULTIPLE BMS, PASSING GAS. FONTENOT DC'D PER ORDERS. VOIDING. 1PA. ACCUCHECKS. IV SL pt REFUSED IV FLUIDS. TOLERATING FULL LIQUID DIET. MIDLINE INCISION COVERED WITH MEPILEX, SCANT DRAINAGE. YANNA DRAINING SEROSANGUINEOUS FLUID. USES CALL LIGHT APPROPRIATELY.
--- NOTE | 2019-07-16 07:00 | NUR ---
Pt resting supine in bed eyes closed and respirations even and unlabored. Call light and h2o in reach. Pt appears to be sleeping comfortably.
--- NOTE | 2019-07-16 09:05 | NUR ---
PT RESTING IN SEMI FOWLERS POSITION IN BED, TOLERATED BREAKFAST WELL. ASSESSMENT COMPLETED. AM MEDS INCLUDING PRN PO PAIN MEDICATIONS FOR INCREASED ABD PAIN TO ABDOMEN. FRESH H2O AND PERSONAL ITEMS IN REACH. YANNA DRAIN CONTINUES TO DRAIN MODERATE SS AMOUNTS OF FLUID, 45MLS EMPTIED AT THIS TIME. CALL LIGHT IN REACH. NO FURTHER NEEDS OR CONCERNS VOICED.
--- NOTE | 2019-07-16 11:42 | NUR ---
PT SITTING UP IN CHAIR VISITING WITH HER WITTING ON COUCH. PT STATES SHE IS COMFORTABLE, NO NEEDS OR CONCERNS VOICED. YANNA DRAIN EMPTIED OF 38MLS OF SS DRAINAGE. PT REPORTS THAT SHE TOLERATED ONE LAP AROUND NURSING STATIONS WITH SBA. CALL LIGHT AND H2O IN REACH. PT APPEARS TO BE IN GOOD SPIRITS.
--- NOTE | 2019-07-16 12:00 | NUR ---
Pt was up ambulating in halls with slow but steady gait. Pt appeared to tolerate well and is now back to resting in bed. Call light and h2o in reach. SCD's in place. No further needs/concerns voiced.
--- NOTE | 2019-07-16 13:45 | NUR ---
PT RESTING IN SEMI FOWLERS POSITION IN BED, ALERT AND ORIENTED. PT ASSESSMENT COMPLETED. YANNA DRAIN EMPTIED OF 40MLS SS DRAINAGE. I/O'S DOCUMENTED. SCD'S IN PLACE. PT TOLERATED 65% OF LUNCH. FRESH ICE WATER PROVIDED. PT DENIES SOB, NAUSEA OR PAIN. WHEN ASKED IF PT HAD ANY FURTHER NEEDS OR CONCERNS PT STATES "NO I THINK I AM DOING GOOD NOW THANKS. THINK I MIGHT JUST TRY TO TAKE A NAP NOW". CALL LIGHT AND H2O IN REACH.
--- NOTE | 2019-07-16 16:39 | NUR ---
PT RESTING SUPINE IN BED EYES CLOSED BUT PT ALERT TO NOISE. YANNA DRAIN EMPTIED OF 55MLS OF SEROSANG DRANAGE. Pt assisted up to restroom with 1pa, Pt remains unsteady on feet and holds this rn's hand to bathroom, she declined a walker whenh offered. Pt used Call string appropriatley when finished and was assisted back to bed in same fashion. Pt voided 500mls clear yellow urine Call light and h2o in reach. Pt denies further needs or concerns. f
--- NOTE | 2019-07-16 19:21 | NUR ---
REPORT RECEIVED, PT RESTING IN BEDSIDE CHAIR, ON RA, EXTRA PILLOW PROVIDED, QUESTIONS ANSWERED REGARDING POC, PT DENIES ANY NEEDS AT THIS TIME, CALL LIGHT WITHIN REACH. FALL PRECAUTIONS IN PLACE.
--- NOTE | 2019-07-16 19:47 | NUR ---
PT C/O 05/02 PAIN TO ABD/BACK, PT GIVEN PRN TYLENOL PER EMAR, NEW ICE WATER PROVIDED, PT VISITING WITH FAMILY, NO FURTHER NEEDS AT THIS TIME, CALL LIGHT WITHIN REACH.
--- NOTE | 2019-07-16 20:46 | NUR ---
patients vs and I&Os were complete. BS check was 159, TANI Mejía was notified. patient rated pain as a 6. Nothing further needed at this time.
--- NOTE | 2019-07-16 20:56 | NUR ---
EVENING MEDS ADMINISTERED, PT RESTING IN BED, PT'S VSS, NO C/O SIGNIFICANT PAIN AT THIS TIME, PT'S CBG 159, INSULIN COVERAGE PROVIDED PER EMAR/SS, 2 RN VERIFY WITH EM FREIRE, PT'S LS CLEAR, ON RA, BT ACTIVE, PT'S MEPILEX/DRESSING C/D/I, YANNA DRAIN EMPTIED BY ARI SCHMID, MODERATE AMOUNT OF SEROSANGUINEOUS DRG, IV SL X2, BOTH FLUSH WELL. PT DENIES ANY NEEDS AT THIS TIME, SCD'S ON, CALL LIGHT WITHIN REACH. FALL PRECAUTIONS IN PLACE. HYDRATION AT BEDSIDE.
--- NOTE | 2019-07-16 22:56 | NUR ---
CALL LIGHT ANSWERED, PT WAS INCONTINENT OF BM WELL VOID ON HER WAY TO THE BATHROOM, BINU CHAPMAN IN ROOM TO ASSIST PT WITH NEW GOWN AND SCD'S, YANNA DRAIN EMPTIED OF 40MLS OF SEROSANGUINEOUS DRAINAGE, CHUX APPLIED TO PT'S BED, CALL LIGHT WITHIN REACH.
--- NOTE | 2019-07-16 23:18 | NUR ---
CALL LIGHT ANSWERED, PT GRIMACING IN BED, CLUTCHING STOMACH AND RIGHT ABDOMEN, PT C/O PAIN OF 8/10, PT GRIMACING AND GROANING IN PAIN, PT REQUESTING PRN PAIN MEDICATION STATING "THIS IS WHAT HAPPENED LAST NIGHT" DESCRIBING PAIN SUDDEN ONSET OF SHARP PAIN IN ABDOMEN RADIATING TO BACK, DISCUSSED PAIN MANAGEMENT WITH PROCESS DEVELOPMENT MANAGER WELL PT, PRN PAIN MEDICATION GIVEN PER EMAR, WILL CONTINUE TO MONITOR, PT DENIES ANY NAUSEA OR INDIGESTION DISCOMFORT AT THIS TIME. CALL LIGHT WITHIN REACH.
--- NOTE | 2019-07-17 01:01 | NUR ---
PT AWAKE, UP TO BATHROOM TO VOID, PT DESCRIBES ABD DISCOMFORT OF 5/10, PRN IBUPROFEN GIVEN PER EMAR, NO FURTHER NEEDS AT THIS TIME, CALL LIGHT WITHIN REACH.
--- NOTE | 2019-07-17 04:28 | NUR ---
PT RESTING IN BED, EYES CLOSED, BREATHS EVEN, UNLABORED, NO NEEDS AT THIS TIME, CALL LIGHT WITHIN REACH. SCD'S ON. FALL PRECAUTIONS IN PLACE.
--- NOTE | 2019-07-17 06:59 | NUR ---
PT UP TO BATHROOM, SBA, TOLERATING AMBULATION WELL, PT'S VSS, NO LIGHT HEADEDNESS OR DIZZINESS, YANNA EMPTIED OF 90 ML'S OF SEROSANGUINEOUS DRG, ABDOMINAL DRESSINGS REMAIN INTACT, PT DENIES ANY SIGNIFICANT PAIN AT THIS TIME, PT ASSISTED BACK TO BED BY ARI SCHMID, SCD'S ON, FRESH ICE WATER PROVIDED, NO FURTHER NEEDS AT THIS TIME, CALL LIGHT WITHIN REACH.
--- NOTE | 2019-07-17 07:02 | NUR ---
PT RESTING IN SEMI FOWLERS POSITION IN BED ALERT AND ORIENTED. PT APPEARS TO REMAIN IN GOOD SPIRITS. NO NEEDS/CONCERNS VOICED. PT STATES PAIN IS TOLERABLE AND DENIES SOB OR NAUSEA. CALL LIGHT AND H2O IN REACH.
--- NOTE | 2019-07-17 08:45 | NUR ---
PT RESTING SUPINE IN BED ALERT AND ORIENTED. PT ASSESSMENT COMPLETED. AM MEDS ADMINISTERED; VSS. CALL LIGHT AND FRESH ICE WATER IN REACH. PT DENIES NEEDS/CONCERNS AND APPEARS TO BE IN A PLEASANT MOOD THIS MORNING AND TALKS ABOUT HER [place] [address] TRIPS AND THAT SHE HOPES TO BE ABLE TO RIDE TO THE [facility] WITH HER AFTER SHE RECOVERS. YANNA DRAIN EMPTIED OF 60MLS SS DRAINAGE. SOME SHADOWING REMAINS TO BANDAGES BUT OTHERWISE CDI.
--- NOTE | 2019-07-17 11:16 | NUR ---
Pt reports increased pain to abdomen and lower mid back that radiates to the right lower back. PRN IV opiod administered per pt request. call light nad h2o in reach. pt denies further needs/concerns. SCD's in place. ame drain emptied of 25mls of ss drainage.
--- NOTE | 2019-07-17 11:39 | NUR ---
IN TO ANSWER CALL LIGHT. PT REQUESTES TO HAVE SCD'S REMOVED TO USE RESTROOM. SCD'S OFF AND PT AMBULATES WITH SLOW BUT STEADY GAIT TO RESTROOM, PT DENIES ANY DIZZINESS OR LIGHTHEADEDNESS AND STATES "NO I AM DOING JUST FINE WALKING ON MY OWN NOW, I FEEL MUCH STRONGER THAN I DID". PT AGREES TO USE CALL LIGHT NEEDED. NO FURTHER NEEDS/COCNERNS VOICED. IN ROOM AND IS INVOLVED WITH PT'S CARES.
--- NOTE | 2019-07-17 13:45 | NUR ---
PT RESTING IN SEMIFOWLERS POSITION IN BED WATCHING TV. PT REMAINS IN PLEASANT MOOD. ASSESSMENT COMPLETED. PT DECLINES GETTING UP NOW FOR A WALK BUT STATES "MY WILL BE BACK SOON AND I'LL GO THEN". SCD'S IN PLACE. CALL LIGHT AND H2O IN REACH. PT STATES PAIN IS TOLERABLE, DENIES SOB OR NAUSEA.
--- NOTE | 2019-07-17 16:02 | NUR ---
PT RESTING SUPINE IN BED ALERT AND ORIENTED, TANI RUVALCABA IN TO VISIT WITH PATIENT. NO NEEDS/CONCERNS VOICED AND PT APPEARS TO BE RESTING COMFORTABLY. CALL LIGHT AND H2O IN REACH.
--- NOTE | 2019-07-17 18:18 | NUR ---
PT APPEARED TO HAVE A GOOD DAY TODAY. PT AMBULATES WITH SBA AND STEADY GAIT. ALERT AND ORIENTED. PAIN LARGELY CONTROLLED WITH PRN PO TYLENOL AND IBUFORFEN WITH SOME BREAKTHROUGH PAIN REQUIRING A DOSE OF PRN IV OPIOD. DR THOMPSON WAS IN TO EVALUATE PT AND OFFERED DISCHARGE BUT PT REQUESTED TO STAY AN ADDITIONAL DAY WHICH GRANTED. INCISIONS NOW YACHT CAPTAIN, REMAIN WELL APPROXIMATED WITH STERI STRIPS INTACT. YANNA DRAIN CONTINUES TO DRAIN MODERATE AMOUNTS OF SS DRANAGE. PT LIKELY TO HAVE YANNA REMOVED AND TO BE DISCHARGED TOMORROW.
--- NOTE | 2019-07-17 19:22 | NUR ---
REPORT RECEIVED, PT UP WALKING IN THE HALLS WITH , PT DENIES ANY NEEDS AT THIS TIME.
--- NOTE | 2019-07-17 19:35 | NUR ---
patient requested the chux be replaced, and I cleaned up her room a bit. She requested some fresh ice water. nothing further was needed at this time.
--- NOTE | 2019-07-17 20:33 | NUR ---
EVENING MEDS ADMINISTERED, PT AOX4, APPROPRIATE, RESTING IN BED, PT'S CBG 152, INSULIN COVERAGE PROVIDED PER EMAR/SS, 2 RN VERIFICATION, PT C/O SLIGHT TENDERNESS IN ABDOMEN, RATES PAIN 5/10, PRN TYLENOL GIVEN PER EMAR, PT'S ABD INCISION C/D/I, STERI STRIPS IN PLACE, YANNA DRAIN DRAINING SEROSANGUINEOUS DRG, PT'S LS CLEAR, PT STATES "IT IS EASIER TO TAKE A DEEP BREATH TODAY", DEEP BREATHING ENCOURAGED, PT'S IV'S SL, FLUSH WELL, BT ACTIVE, PT DENIES ANY NUMBNESS OR TINGLING, ATTEMPTED TO PLACE SCD'S ON PT ALTHOUGH PT REFUSED SCD'S STATING "I DON'T WANT THOSE, I AM WALKING ENOUGH" EDUCATION PROVIDED REGARDING VTE RISK WELL BENEFITS OF SCD'S, PT CONTINUES TO REFUSE, PT DENIES ANY NEEDS AT THIS TIME, HYDRATION AT BEDSIDE, NO C/O NAUSEA, CALL LIGHT WITHIN REACH. FALL PRECAUTIONS IN PLACE.
--- NOTE | 2019-07-17 22:15 | NUR ---
PT INCONTINENT OF STOOL, ATTENDS CHANGED, BEDDING CHANGED, PT RESTING IN BED, PT DESCRIBES HAVING "SUDDEN DIARRHEA", NO C/O NAUSEA OR INDIGESTION, CALL LIGHT WITHIN REACH. FALL PRECAUTIONS IN PLACE.
--- NOTE | 2019-07-18 00:02 | NUR ---
CALL LIGHT ANSWERED, PT YELLING ON PHONE, "I AM IN BAD PAIN, AND I NEED A SHOT", THIS RN TO THE PT'S ROOM, PT DESCRIBES 8/10 STABBING PAIN ALONG HER INCISION, ABDOMEN TENDER, PT TREMBLING, GRIMACING AND GROANING IN BED, PT GIVEN PRN MORPHINE PER EMAR RELATED TO PT'S BREAK THROUGH PAIN, PT ALSO GIVEN PRN IBUPROFEN, TO CONTINUE TO MAINTAIN CONSISTANT PAIN MANAGEMENT. PT REMAINS RESTING IN BED, ON RA, NO NEW DRAINAGE NOTED FROM INCISION, YANNA DRAIN DRAINING WNL, INTACT, CALL LIGHT WITHIN REACH. NO FURTHER NEEDS AT THIS TIME. FALL PRECAUTIONS IN PLACE.
--- NOTE | 2019-07-18 00:39 | NUR ---
PT RESTING IN BED, EYES CLOSED, BREATHS EVEN, UNLABORED, NO NEEDS AT THIS TIME, NO SIGNS OF DISCOMFORT OR RESTLESNESS, CALL LIGHT WITHIN REACH. FALL PRECAUTIONS IN PLACE.
--- NOTE | 2019-07-18 02:35 | NUR ---
PT RESTING IN BED, EYES CLOSED, BREATHS EVEN, UNLABORED, NO NEEDS AT THIS TIME, CALL LIGHT WITHIN REACH.
--- NOTE | 2019-07-18 04:36 | NUR ---
PT RESTING IN BED, EYES CLOSED, BREATHS EVEN, UNLABORED, NO NEEDS AT THIS TIME, CALL LIGHT WITHIN REACH. FALL PRECAUTIONS IN PLACE.
--- NOTE | 2019-07-18 04:51 | NUR ---
PT AOX4, APPROPRIATE, PT WALKED A FEW LAPS WITH IN HWOELL THIS SHIFT, PT RESTED WELL, PT RECEIVED PRN PAIN MEDICATION X3 THIS SHIFT, PT DID RECEIVE PRN MORPHINE X1 THIS SHIFT RELATED TO SEVERE BREAK THROUGH PAIN, PT MOSTLY INDEPENDENT IN ROOM, VSS, IV SL, PT REFUSED SCD'S THIS SHIFT, YANNA DRAIN HAS HAD MODERATE AMOUNT OF SEROSANGUINEOUS DRG, MIDLINE INCISION HAS HAD NO NEW DRG, STERI STRIPS REMAIN. PLAN TO DC TODAY.
--- NOTE | 2019-07-18 06:01 | NUR ---
Pts VS and I&Os were complete. She requested ice water and nothing further.
--- NOTE | 2019-07-18 07:31 | NUR ---
PT RESTING IN BED AWAKE AND ALERT ON REPORT.
--- NOTE | 2019-07-18 07:51 | NUR ---
PATIENT SITTING UP IN BED. BLOOD SUGAR CHECKED. CALL LIGHT IN REACH. NO FURTHER NEEDS AT THIS TIME. PATIENT INS IN ROOM
--- NOTE | 2019-07-18 09:06 | NUR ---
PT RESTING IN BED AWAKE AND ALERT, ANSWERS QUESTIONS APPROPRIATELY. PT STATES PAIN IN ABD AND IS GUARDED AND TENDER WITH PALPATION; MEDICATED FOR PAIN SEE EMAR. PT DENIES ANY BREAKTHROUGH PAIN MEDICATION AND IS ENCOURAGED TO ALERT THIS RN IF SHE DECIDES DIFFERENTLY. ICED WATER REFILLED, WARM BLANKETS PROVIDED. CALL LIGHT WITHIN REACH.
--- NOTE | 2019-07-18 10:31 | NUR ---
PT REPORTS PAIN 6/10 AT THIS TIME AFTER WALKING IN HALLS, PT ADMINISTERED 600MG MOTRIN PO PRN AT THIS TIME. SNACK PROVIDED TO MINIMIZE STOMACH DISCOMFORT.
--- NOTE | 2019-07-18 10:32 | NUR ---
PT IS ALERT, ORIENTED AND RESTING IN BED. PT MENTIONED THAT SHE HAD A GOOD NIGHT SLEEP, AND HAS BEEN WALKING OFTEN. HAD GOOD VISIT, PT SHARED WITH ME HER ALLISON JOURNEY. GAVE PT A PBLANCA AND SHE REQUESTED PRAYER. WILL FOLLOW NEEDED
--- NOTE | 2019-07-18 12:03 | NUR ---
PT SITTING AT SIDE OF BED EATING LUNCH. PT STATES PAIN IN ABD 4/10 AND DENIES PAIN MEDICATION AT THIS TIME. PT EDUCATED ABOUT PAIN AND WILL NOTIFY RN FOR MEDICATION NEEDS. YANNA DRAIN EMPTIED OF 50 MLS SEROSANGUINOUS FLUID. CALL LIGHT IN REACH.
[2019-07-18] MEDS ORDERED: IBUPROFEN600 MG PO (13:49)
[2019-07-18] MEDS ORDERED: FAMOTIDINE20 MG PO (13:50)
[2019-07-18] MEDS ORDERED: TYLENOL EXTRA500 MG PO (13:50)
--- NOTE | 2019-07-18 14:44 | NUR ---
DISCHARGE PACKET AND EDUCATIONS GIVEN TO PATIENT AND SPOUSE IN ROOM. GAVE EDUCATION ON MEDICATIONS LAST DOSE, NEXT DOSE. DISCUSSED ACTIVITY RESTRICTIONS PER MD ORDERS. FOLLOW UP APPOINTMENTS DISCUSSED. PT SAID DR. THOMPSON SAID SHE DID NOT NEED TO FOLLOW UP WITH AT THIS TIME. APPOINTMENT CANCELLED. IV X2 REMOVED WNL, TIP INTACT. DISCUSSED WITH PT TO KEEP INCISION CLEAN AND DRY, LEAVE STERI STRIPS IN PLACE. PT AND SPOUSE VERBALIZED ALL EDUCATION POINTS BACK. NO FURTHER QUESTIONS.
== END 2019-07-18 15:15 | disposition home or self-care (01) | DRG 737 ==
LOC: DS 07:05 → CCU 14:25 → DS 14:25 → MS 15:15 → CCU 20:16 → MS 07-15 13:23 → CCU 07-15 13:24 → MS 07-15 13:52
PROVIDERS: ADMIT Surgery
PROC: 0UT20ZZ Resection of Bilateral Ovaries, Open Approach (ICD-10-PCS; 2019-07-14)
PROC: 0DTU0ZZ Resection of Omentum, Open Approach (ICD-10-PCS; 2019-07-14)
PROC: 0DBW0ZZ Excision of Peritoneum, Open Approach (ICD-10-PCS; 2019-07-14)
PROC: 0WBF0ZZ Excision of Abdominal Wall, Open Approach (ICD-10-PCS; 2019-07-14)
PROC: 3E0T3BZ Introduction of Anesthetic Agent into Peripheral Nerves and Plexi, Percutaneous Approach (ICD-10-PCS; 2019-07-14)
PROC: 0UT90ZZ Resection of Uterus, Open Approach (ICD-10-PCS; principal; 2019-07-14 08:15)
PROC: 0UT70ZZ Resection of Bilateral Fallopian Tubes, Open Approach (ICD-10-PCS; 2019-07-14 08:15)
DX: C56.2 Malignant neoplasm of left ovary (principal); N13.1 Hydronephrosis with ureteral stricture, not elsewhere classified; C78.6 Secondary malignant neoplasm of retroperitoneum and peritoneum; C79.89 Secondary malignant neoplasm of other specified sites; G89.18 Other acute postprocedural pain; E11.9 Type 2 diabetes mellitus without complications; K21.9 Gastro-esophageal reflux disease without esophagitis; E78.5 Hyperlipidemia, unspecified; I10 Essential (primary) hypertension; E03.9 Hypothyroidism, unspecified; Z88.8 Allergy status to other drugs, medicaments and biological substances; Z92.21 Personal history of antineoplastic chemotherapy; Z79.1 Long term (current) use of non-steroidal anti-inflammatories (NSAID); Z79.82 Long term (current) use of aspirin; Z79.4 Long term (current) use of insulin; Z79.891 Long term (current) use of opiate analgesic; Z79.899 Other long term (current) drug therapy
CPT/HCPCS: 00840; 36415; 80048; 80053; 85025; 86850; 86900; 86901; 88305; 88309; 93005; 93010; J0131; J0690; J1100; J1644; J1815; J1885; J2270; J2370; J2405; J2704; J2795; J3010; J7120; J7121

== ENCOUNTER 2021-07-23 06:05 | Emergency (ER) | payer OTHER, MEDICARE ==
[~2021-07-23] VITALS: Ht 149.9 cm; Wt 40.8 kg
[~2021-07-23 06:05] MED LIST changes: +AVASTIN25 MG/1 ML IV; +DURAGESIC1 EAC4 TD; +DURAGESIC1 EACH TD; +FAMOTIDINE20 MG PO; +IBUPROFEN600 MG PO; +LOMOTIL TABLET1 EACH PO; +LOPERAMIDE2 M1 PO; +RA P-COL RITE1 EACH PO; +TYLENOL EXTRA500 MG PO
--- OUTSIDE RECORDS SUMMARY | 2021-07-23 06:08 | XMS ---
PreManage Notification: Carmelo WADSWORTH Security [employer] Events No recent Security Events currently on file CRITERIA MET - PDMP - History of Sepsis Dx CARE PROVIDERS There are no care providers on record at this time. Tanya has no Care Guidelines for this patient. EDamian VISIT COUNT (12 MO.) 1 NEELAM Arenas TOTAL 1 NOTE: Visits indicate total known visits. ED/C VISIT TRACKING (12 MO.) 07/23/2021 06:05 NEELAM Eason OR TYPE: Emergency COMPLAINT: - DIFFICULTY BREATHING INPATIENT VISIT TRACKING (12 MO.) No inpatient visits to display in this time frame [email or web address]
[2021-07-23] MEDS ORDERED: METOPROLOL SUCC50 MG PO (06:30)
[2021-07-23] MEDS ORDERED: MORPHINE SULFAT10 M1 PO (06:32)
[2021-07-23] MEDS ORDERED: OMEPRAZOLE20 MG PO (06:32)
--- NOTE | 2021-07-23 11:16 | EKG ---
[facility] [address] [place] [address] Signed Normal sinus rhythm Normal ECG When compared with ECG of 14-JUL-2019 13:31, Nonspecific T wave abnormality, improved in Inferior leads Nonspecific T wave abnormality, improved in Anterior leads Confirmed by LEILA HAWKINS MD ([id number] on 07/23/2021 11:16:46 AM Electronically Signed By: LEILA HAWKINS MD 07/23/21 1116 PATIENT NAME: Carmelo WADSWORTH Electrocardiogram DATE OF : 36 PHYSICIAN: LEILA HAWKINS MD REPORT #: [id number] REPORT IS CONFIDENTIAL AND NOT TO BE RELEASED WITHOUT AUTHORIZATION
== END 2021-07-23 07:02 | disposition home or self-care (01) ==
LOC: ED 06:05
DX: C56.9 Malignant neoplasm of unspecified ovary (principal); I10 Essential (primary) hypertension; K21.9 Gastro-esophageal reflux disease without esophagitis; E03.9 Hypothyroidism, unspecified; E11.9 Type 2 diabetes mellitus without complications; Z91.030 Bee allergy status; Z88.8 Allergy status to other drugs, medicaments and biological substances; Z79.899 Other long term (current) drug therapy; Z79.891 Long term (current) use of opiate analgesic; Z79.4 Long term (current) use of insulin
CPT/HCPCS: 93005; 93010; 94640; 94664; 99284-25